=== PATIENT | male | born 1950 | race Caucasian/White ===

== ENCOUNTER → 2023-09-16 07:47 | Outpatient (CLI) | payer MEDICARE, OTHER, SELFPAY ==
--- NOTE | 2023-09-16 07:53 | DI.RAD.S_ITS ---
PROCEDURE: XR HAND LT MIN 3V INDICATIONS: Left hand pain TECHNIQUE: 3 views of the hand(s) acquired. COMPARISON: None. FINDINGS: Bones: No fractures or dislocations. Carpal bones are normally aligned. No suspicious bony lesions. Polyarticular background degenerative changes seen throughout the left hand and wrist. Moderate degenerative changes of the left 2nd metacarpophalangeal joint as well as the 1st carpometacarpal joint. Soft tissues: No suspicious soft tissue calcifications. IMPRESSION: No acute bony abnormality. 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 If there are persistent symptoms or clinical suspicion for pathology, then repeat radiographs or advanced imaging (CT or MRI) may be considered for further evaluation. Dictated by: Mane Victoria M.D. on 09/16/2023 at 8:19 Approved by: Mane Victoria M.D. on 09/16/2023 at 8:31
== END ==
LOC: RAD 07:50
PROVIDERS: Referring Provider Registered Nurse; Visit Provider Registered Nurse
DX: M79.642 Pain in left hand (principal)
CPT/HCPCS: 73130